=== PATIENT | female | born 1985 | race African-American/Black ===

== ENCOUNTER 2017-12-03 09:36 | Emergency (ER) | payer OTHER ==
[~2017-12-03] VITALS: Ht 167.6 cm; Wt 90.7 kg
[2017-12-03 09:36] VITALS: BP_SYST 150
--- NOTE | 2017-12-03 09:36 | NUR ---
BROUGHT BACK TO BED #6 AND TRIAGED. REPORT GIVEN TO SUSAN
--- NOTE | 2017-12-03 09:40 | NUR ---
Pt presents to ER c/o L lower back pain that radiates to L leg. Pt rates pain 10/10. Pt says she has been taking ibuprofen x 2 weeks but has not relieved her symptoms. Pt reports history of gallstones. Pt in no acute distress, AOX4, mother at bedside.
--- NOTE | 2017-12-03 10:30 | NUR ---
ER at bedside examining patient.
[2017-12-03] MEDS: KETOROLAC TROMETHAMINE 60 MG/2 ML VIAL IM ONE (10:48)
--- NOTE | 2017-12-03 10:52 | NUR ---
Pt medicated for pain level 7/10 as stated by pt. Pt tolerated well. Will continue to monitor.
[2017-12-03 11:20] VITALS: BP_SYST 142
--- NOTE | 2017-12-03 11:20 | NUR ---
Patient given written and verbal discharge instructions and verbalizes understanding. ER MD discussed with patient the results and treatment provided. Patient in stable condition. ID arm band removed. Rx of Flexeril & Lincoln given. Patient educated on pain management and to follow up with PMD. Pain Scale 5/10 but advised to take prescription pain med when she gets home. Opportunity for questions provided and answered.
== END 2017-12-03 11:20 | disposition home or self-care (01) ==
LOC: SED 09:36
DX: M54.30 Sciatica, unspecified side (principal)
CPT/HCPCS: 96372; 99283; J1885